=== PATIENT | female | born 1990 | race Caucasian/White ===

== ENCOUNTER 2022-12-18 09:23 | Emergency (ER) | payer OTHER, SELFPAY ==
[2022-12-18 09:24] VITALS: BP 123/84; PULSE 80; RESP 16; TEMP 36.4; O2SAT 93; BMI 26.4
--- NOTE | 2022-12-18 09:48 | EKG12_ITS ---
Test Reason : CP Blood Pressure : / mmHG Vent. Rate : 075 BPM Atrial Rate : 075 BPM P-R Int : 136 ms QRS Dur : 074 ms QT Int : 394 ms P-R-T Axes : 059 -05 034 degrees QTc Int : 439 ms Normal sinus rhythm Normal ECG Confirmed by PATRICIO WILSON MD ([id number]), deputy editor in chief DOC QUIÑONEZ ([id number]) on 12/19/2022 8:33:30 AM Referred By: ASUNCION Confirmed By:PATRICIO WILSON MD
[2022-12-18 10:20] LABS: Absolute Lymphocyte Count 2.63 X10^3/uL (0.83-4.51); Absolute Neutrophil Count 2.5 X10^3/uL (2.0-7.7); Basophil# 0.02 X10^3/uL; Basophil% 0.3 % (0-1); Eosinophils% 3.4 % (0-5); Hematocrit 39.9 % (37-47); Hemoglobin 13.3 g/dL (12.0-15.0); Lymphocyte # 2.63 X10^3/ul (0.83-4.51); Mean Corp Hgb Conc 33.3 g/dL (32-36); Mean Corpuscular Hgb 30.3 pg (27.0-32.0); Mean Corpuscular Volume 90.9 fL (81-99); Mean Platelet Vol. 9.8 fl (6.2-12.0); Monocyte% 8.6 % (0-10); NRBC Flagged by Analyzer 0 % (0-5); Neutrophil # 2.48 X10^3/uL (2.7-7.7); Neutrophil % 42.5 % (47-70); Platelet Count 284 K/mm3 (150-450); RBC Distribution Width SD 40.2 fl (35.1-43.9); Red Blood Count 4.39 M/mm3 (4.2-5.4); White Blood Count 5.8 K/mm3 (4.4-11.0)
[2022-12-18 10:37] LABS: Anion Gap 8 (5-15); BUN 14 mg/dL (7-18); BUN/Creat Ratio 19.8 RATIO (10-20); Calcium,Total 9.4 mg/dL (8.5-10.1); Chloride 109 mmol/L (98-107); Creatinine, Serum 0.71 mg/dL (0.55-1.02); EST Glomerular Filtration Rate 101 mL/min (>60); Est Glom Filt Rate - Afr Amer 122 mL/min (>60); Estimated Creatinine Clearance 84.25 ml/min; Glucose 91 mg/dL (74-106); Potassium 3.9 mmol/L (3.5-5.1); Sodium Level 140 mmol/L (136-145); Troponin-I HS < 3 pg/mL (3.0-54.0)
--- NOTE | 2022-12-18 11:18 | ED.VIS.CHEST ---
HPI History of Present Illness Chief Complaint: Chest Pain Informant: patient Onset/Context/Timing Onset: Today Narrative Narrative: Chart chest pain rating to the shoulder back since 5 AM this morning. No dyspnea or cough. Had chills. Denies recent travel or surgeries or immobilizations. No history of PE or DVT. Denies tobacco. Daughter has fevers at home and not checked. Allergies penicillin. Took ibuprofen around 6 AM. There was some relief. Denies family history of MIs at a young age. PFSH PFSH Medical History no medical history Allergy/AdvReac Type Severity Reaction Status Date / Time Penicillins [PCN] Allergy Anaphylaxis Verified 12/18/22 09:26 Social History Smoking Status: Never smoker ROS ROS ED Constitutional Constitutional ED: Reports chills; Denies fever(s) or sweats Eyes Eyes: Denies change in vision ENT ENT ED: Denies dysphagia or sore throat Cardiovascular Cardiovascular: Reports chest pain; Denies leg edema, palpitations or racing heartbeat Respiratory/Chest Respiratory/Chest: Denies cough, dyspnea or dyspnea on exertion Gastrointestinal Gastrointestinal: Denies abdominal pain, diarrhea, nausea or vomiting Genitourinary Genitourinary ED: Denies dysuria, hematuria or urinary frequency Musculoskeletal Musculoskeletal: Denies back pain, extremity pain or neck pain Integumentary Denies rash or wounds Neurologic Neurologic: Denies headache(s), paresthesias or weakness EXAM Physical Exam Const Vital Signs: 12/18/22 09:24 12/18/22 09:48 12/18/22 11:23 Temperature 97.5 F L Temperature Source Temporal Pulse Rate 80 78 Respiratory Rate 16 16 Blood Pressure 123/84 H 134/78 H Blood Pressure Mean 97 96 Pulse Ox 93 98 Oxygen Delivery Method Room Air Room Air Room Air Positive well nourished and well developed Constitutional Narrative: Tremors and shaking during exam, nontoxic General Appearance ED: well developed HEENT Reports moist mucous membranes normocephalic and atraumatic Eyes PERRL, EOMs intact bilaterally and conjunctivae normal General Eye ED: Yes normal appearance of both eyes Neck no lymphadenopathy and supple General: Negative for tenderness Chest Wall Chest: Negative for tenderness Resp normal respiratory effort and normal air movement Effort and Inspection: symmetric chest movement; Negative for respiratory distress Cardio regular rate, regular rhythm and no murmurs Peripheral Pulses: pulses 2+ throughout GI normal to inspection, nondistended, normoactive bowel sounds and non-tender Palpation: Negative for guarding or rebound tenderness present Back/Spine no CVA tenderness and no thoracic nor lumbar tenderness Extremity normal to inspection General Extremety ED: Negative for edema or tenderness General Extremity: Negative for edema Neuro oriented x3 and no sensory deficits noted Sensorium / Orientation: awake and alert Skin no rashes or lesions noted and no wounds MDM MDM MDM Narrative Medical decision making narrative: Interventions / MDM: Differential diagnosis: ACS, musculoskeletal chest pain, viral syndrome Diagnosis considered but do not suspect: Pulmonary embolism, however PERC criteria negative, aortic dissection, symmetric pulses bilateral upper extremities, blood pressure stable. Pericarditis, no findings on EKG. My EKG interpretation: Sinus rhythm. Imaging independently reviewed and interpreted by myself: Chest x-ray 1 view negative for acute process External documents reviewed: N/A Test considered but not ordered:N/A ED course: Patient work-up started in triage due to busy department. EKG with no ischemic findings. Troponin less than 3 therefore per algorithm not cardiac in nature. PERC criteria negative lower suspicion for PE. She reported chills, daughter sick with fever at home. Rapid flu and COVID-negative she is symptomatic first day. Discussed possibility of false negative findings. Blood pressure stable, equal pulses bilaterally therefore lower suspicion for aortic dissection. She was treated with Toradol with improving symptoms. She has early viral syndrome improving symptoms currently. Discussed monitoring symptoms of persisting and recheck COVID in 2 days. She will continue Tylenol and ibuprofen. Return precautions discussed. All questions were answered. Re-evaluation: stable and improved Disposition discussed with patient/family/significant other: Patient Case discussed with consulting clinician: N/A Lab Data Attestation: I reviewed the patient's lab results. Labs: Laboratory Results - last 24 hr 12/18/22 12/18/22 10:09 10:09 WBC 5.8 RBC 4.39 Hgb 13.3 Hct 39.9 MCV 90.9 MCH 30.3 MCHC 33.3 RDW Std Deviation 40.2 RDW Coeff of Angel 12.0 Plt Count 284 MPV 9.8 Immature Gran % (Auto) 0.200 Neut % (Auto) 42.5 L Lymph % (Auto) 45.0 H [place] % (Auto) 8.6 Eos % (Auto) 3.4 Baso % (Auto) 0.3 Absolute Neuts (auto) 2.5 Absolute Lymphs (auto) 2.63 Nucleated RBC % 0 Sodium 140 Potassium 3.9 Chloride 109 H Carbon Dioxide 23.0 Anion Gap 8 BUN 14 Creatinine 0.71 Estim Creat Clear Calc 84.25 Est GFR (MDRD) Af Amer 122 Est GFR (MDRD) Non-Af 101 BUN/Creatinine Ratio 19.8 Glucose 91 Calcium 9.4 Troponin I High Sens < 3 L Radiography Diagnostic Testing: Clinical Impression(s) from Imaging Studies Chest X-Ray 12/18/22 11:25 IMPRESSION: Normal x-ray examination of the chest. Minimal dextroscoliosis. Electronically Signed: Tal Chilel MD at 12:18 EST , EKG Initial EKG: Attestation: I personally reviewed and interpreted this EKG as follows: Comments: Sinus rate of 75, no ST or T wave changes. Discharge Plan Triage Chief Complaint: Chest Pain ED Provider: Alex Sarkar Dx/Rx/DC Orders Clinical Impression: Chest pain, Acute viral syndrome, Chills Instructions: ED Viral Syndrome (Adult), ED Chest Pain, Noncardiac (Child) Primary Care Provider: Care Physician,Stella Primary Referrals: NOT,DEFINED [Non-Staff] - Activity Restrictions/Additional Instructions: Cardiac work-up negative. COVID influenza negative. Possibly falsely negative can recheck COVID in 2 days if chills persist or develop new symptoms. Monitor symptoms continue Tylenol or ibuprofen as needed. If symptoms persist or worsens return for reevaluation. Disposition Disposition: Home, Self Care Discharge Date/Time: 12/18/22 13:35
[2022-12-18 11:23] VITALS: BP 134/78; PULSE 78; RESP 16; O2SAT 98
--- NOTE | 2022-12-18 11:25 | RAD_ITS ---
STUDY: X-RAY CHEST REASON FOR EXAM: Female, 32 years old. Chest pain TECHNIQUE: Single AP portable view of the chest. COMPARISON: None. FINDINGS: The lungs are clear and expanded. There is no demonstrated pleural abnormality. Normal size heart. Normal mediastinum and byron. Normal visualized pulmonary arteries. Normal visualized aortic arch and descending thoracic aorta. Minimal dextroscoliosis. Normal visualized ribs, clavicles, and shoulders. There is no demonstrated abnormality of the visualized soft tissue structures of the upper abdomen. RAD/Chest 1 View (Portable) IMPRESSION: Normal x-ray examination of the chest. Minimal dextroscoliosis. Electronically Signed: Tal Chilel MD at 12:18 EST ,
[2022-12-18] MEDS: Ketorolac 15 MG/ML Vial IV (11:49)
== END 2022-12-18 13:35 | disposition home or self-care (01) ==
PROVIDERS: Emergency Provider Emergency Medicine; Visit Provider Emergency Medicine
DX: B34.9 Viral infection, unspecified (principal); R07.9 Chest pain, unspecified; R68.83 Chills (without fever); Z20.822 Contact with and (suspected) exposure to COVID-19
CPT/HCPCS: 71045; 80048; 84484; 85025; 87428; 93005; 96374; 99284; A4216